=== PATIENT | male | born 1990 | race Asian ===

== ENCOUNTER 2021-04-17 04:51 | Emergency (ER) | payer SELFPAY ==
[2021-04-17 04:56] VITALS: BP 150/100
--- NOTE | 2021-04-17 05:34 | Emergency Department Report ---
ED Extremity Problem HPI - General Chief complaint: Extremity Injury, Lower Stated complaint: LEG PAIN Source: patient, EMS Mode of arrival: Ambulatory Limitations: No Limitations - History of Present Illness Initial comments: Patient is a 30-year-old -[place] male with a history of chronic low back pain with sciatica, schizoaffective disorder and bipolar with complaint of acute exacerbation of his chronic low back pain who presents to the ED and sciatica that radiates to the lower extremities after a bowling activity 2 weeks ago. Patient states the pain has been persistent since then and that he has been taking Tylenol with no relief. Patient denies fever, chills, nausea, vomiting, chest pain, shortness of breath, abdominal pain, nausea and vomiting, dizziness, syncope, fall, traumatic injury or heavy lifting. MD Complaint: extremity pain (Bilateral lower leg pain; chronic low back pain), joint paint -: Sudden, week(s) (3) Location: bilateral lower extremity History of Same: Yes (chronic low back pain) -: Yes arthralgia Radiation: distal Severity scale (0 -10): 8 Quality: aching, sharp Consistency: constant Improves with: nothing Worsens with: weight bearing, walking, exertion, palpation Associated Symptoms: denies other symptoms, arthralgias. denies: chest pain, shortness of breath, myalgias, rash - Related Data Previous Rx's Medication Instructions Recorded Last Taken Type Baclofen 20 mg PO Q12H PRN #30 tablet 04/17/21 Unknown Rx Gabapentin 300 mg PO DAILY #30 cap 04/17/21 Unknown Rx Ibuprofen [Motrin] 800 mg PO Q8HR PRN #30 tablet 04/17/21 Unknown Rx predniSONE [Deltasone] 60 mg PO QDAY #15 tab 04/17/21 Unknown Rx Allergies Allergy/AdvReac Type Severity Reaction Status Date / Time ketorolac [From Toradol] Allergy Headache Verified 04/17/21 04:57 vancomycin Allergy Swelling Verified 04/17/21 04:57 ED Review of Systems ROS: Stated complaint: LEG PAIN Other details as noted in HPI Constitutional: denies: chills, fever Eyes: denies: eye pain, eye discharge, vision change ENT: denies: ear pain, throat pain Respiratory: denies: cough, shortness of breath, wheezing Cardiovascular: denies: chest pain, palpitations Endocrine: no symptoms reported Gastrointestinal: denies: abdominal pain, nausea, vomiting, diarrhea Genitourinary: denies: urgency, dysuria Musculoskeletal: back pain (Low back pain), arthralgia (Bilateral lower extremity pain), myalgia. denies: joint swelling Skin: denies: rash, lesions Neurological: denies: headache, weakness, paresthesias Psychiatric: denies: anxiety, depression Hematological/Lymphatic: denies: easy bleeding, easy bruising ED Past Medical Hx - Past Medical History Hx Sickle Cell Disease: Yes Hx Psychiatric Treatment: Yes (BIPOLAR, PSYCHZOEFFECTIVE) Additional medical history: Chronic low back pain with sciatica - Medications Home Medications: Home Medications Medication Instructions Recorded Confirmed Last Taken Type Baclofen 20 mg PO Q12H PRN #30 tablet 04/17/21 Unknown Rx Gabapentin 300 mg PO DAILY #30 cap 04/17/21 Unknown Rx Ibuprofen [Motrin] 800 mg PO Q8HR PRN #30 tablet 04/17/21 Unknown Rx predniSONE [Deltasone] 60 mg PO QDAY #15 tab 04/17/21 Unknown Rx ED Physical Exam - General Limitations: No Limitations General appearance: alert, in no apparent distress - Head Head exam: Present: atraumatic, normocephalic, normal inspection - Eye Eye exam: Present: normal appearance, PERRL, EOMI Pupils: Present: normal accommodation - ENT ENT exam: Present: normal exam, normal orophraynx, mucous membranes moist, TM's normal bilaterally, normal external ear exam - Neck Neck exam: Present: normal inspection, full ROM. Absent: tenderness, lymphadenopathy - Respiratory Respiratory exam: Present: normal lung sounds bilaterally. Absent: respiratory distress, wheezes, rales, rhonchi, chest wall tenderness, decreased breath sounds - Cardiovascular Cardiovascular Exam: Present: regular rate, normal rhythm, normal heart sounds. Absent: systolic murmur, diastolic murmur, rubs, gallop - GI/Abdominal GI/Abdominal exam: Present: soft, normal bowel sounds. Absent: tenderness, guarding, rebound, hyperactive bowel sounds, hypoactive bowel sounds, organomegaly - Extremities Exam Extremities exam: Present: normal inspection, full ROM, tenderness (Palpable mild bilateral diffuse lower extremity tenderness), normal capillary refill. Absent: pedal edema, calf tenderness - Back Exam Back exam: Present: normal inspection, full ROM, tenderness (Palpable lumbosacral paraspinal musculoskeletal tenderness), muscle spasm, paraspinal tenderness. Absent: CVA tenderness (R), CVA tenderness (L), vertebral tenderness - Neurological Exam Neurological exam: Present: alert, oriented X3, CN II-XII intact, normal gait, reflexes normal - Psychiatric Psychiatric exam: Present: normal affect, normal mood - Skin Skin exam: Present: warm, dry, intact, normal color. Absent: rash ED Course Vital Signs 04/17/21 04:53 Temperature 98.4 F Pulse Rate 88 Respiratory 18 Rate Blood Pressure 150/100 [Right] O2 Sat by Pulse 99 Oximetry ED Medical Decision Making - Medical Decision Making This is a 30-year-old -[place] male with a history of chronic low back pain with sciatica, schizophrenia schizoaffective disorder and bipolar with complaint of acute exacerbation of his chronic low back pain who presents to the ED and sciatica that radiates to the lower extremities after a bowling activity 2 weeks ago. Patient states the pain has been persistent since then and that he has been taking Tylenol with no relief. In the ED, patient is alert and oriented x3 and is not in any distress. Patient is hemodynamically stable. Patient was treated for pain in the ED and discharged home on medications. Patient was advised to follow-up with his primary care physician in 7 to 10 days for reevaluation or return to the ED immediately if symptoms get worse. - Differential Diagnosis Muscle spasm; chronic back pain with sciatica; muscle strain Critical care attestation.: If time is entered above; I have spent that time in minutes in the direct care of this critically ill patient, excluding procedure time. ED Disposition Clinical Impression: Spasm of muscle of lower back Chronic low back pain with sciatica Qualifiers: Back pain laterality: bilateral Sciatica laterality: bilateral sciatica Qualified Code(s): M54.42 - Lumbago with sciatica, left side; M54.41 - Lumbago with sciatica, right side; G89.29 - Other chronic pain Disposition: 01 HOME / SELF CARE / HOMELESS Is pt being admited?: No Does the pt Need Aspirin: No Condition: Stable Instructions: Muscle Cramps and Spasms, [id number], Chronic Back Pain, [id number], Sciatica, [id number] Additional Instructions: Your symptoms are likely musculoskeletal based on the chronic pain. Your symptoms are also due to muscle strain from bowling activities. Therefore take medications with food, drink plenty of fluids and follow-up with your primary care physician in 7 to 10 days for reevaluation. Return to the ED immediately if symptoms get worse. Prescriptions: Baclofen 20 mg PO Q12H PRN #30 tablet PRN Reason: Muscle Spasm predniSONE [Deltasone] 60 mg PO QDAY #15 tab Gabapentin 300 mg PO DAILY #30 cap Ibuprofen [Motrin] 800 mg PO Q8HR PRN #30 tablet PRN Reason: Pain , Severe (7-10) Referrals: [facility] [Provider Group] - 3-5 Days Time of Disposition: 05:30 Print Language: INDONESIAN
[2021-04-17] MEDS: HYDROcodone/ACETAMINOPHEN 5-325 MG TAB PO ONE (06:23)
[2021-04-17] MEDS: IBUPROFEN 600 MG TAB PO ONE (06:25)
[2021-04-17] MEDS: ONDANSETRON 4 MG ODT TAB PO ONE (06:25)
[2021-04-17] MEDS: predniSONE 20 MG TAB PO ONE (06:26)
== END 2021-04-17 06:46 | disposition home or self-care (01) ==
LOC: ED 04:51
DX: G89.29 Other chronic pain (principal); M54.42 Lumbago with sciatica, left side; M54.41 Lumbago with sciatica, right side; F31.9 Bipolar disorder, unspecified; D57.1 Sickle-cell disease without crisis
CPT/HCPCS: 99283; J7512; J3490; Q0162